=== PATIENT | female | born 1975 ===

== ENCOUNTER 2021-12-11 08:08 | Day surgery (SDC) | payer OTHER ==
[~2021-12-11 08:08] MED LIST: ACID REDUCER20 M1 PO; ANTIVERT PO; CLONAZEPAM1 MG PO; ELIQUIS5 MG PO; FIORICET PO; GEMFIBROZIL600 MG PO; HORIZANT600 MG PO; HUMUL; HYDROCHLOROTHIA25 MG PO; LOSARTAN POTASS25 MG PO; NABUMETONE750 MG PO; TOPROL XL25 M1 PO
== END 2021-12-11 20:00 | disposition home or self-care (01) ==
LOC: CIR.AMB 08:08
PROVIDERS: ATTEND Obstetrics & Gynecology Obstetrics
DX: N84.0 Polyp of corpus uteri (principal); Z95.5 Presence of coronary angioplasty implant and graft; I25.10 Atherosclerotic heart disease of native coronary artery without angina pectoris; I10 Essential (primary) hypertension; Z86.711 Personal history of pulmonary embolism; E11.9 Type 2 diabetes mellitus without complications; R42 Dizziness and giddiness; K21.9 Gastro-esophageal reflux disease without esophagitis; E66.9 Obesity, unspecified; Z79.01 Long term (current) use of anticoagulants